=== PATIENT | male | born 2000 | race Caucasian/White ===

== ENCOUNTER 2023-05-16 13:46 | Emergency (ER) | payer SELFPAY ==
[2023-05-16 13:47] VITALS: BP 179/104; PULSE 78; RESP 16; TEMP 36.7; O2SAT 99; BMI 35.9
--- NOTE | 2023-05-16 13:49 | XR_ITS ---
WS: [id number] Left hand, 3 views, 05/16/2023 Clinical Data: injury Comparison: None. Findings: No fractures or dislocations are seen. The soft tissues are unremarkable. The joint spaces are normal Impression: Negative left hand.
--- NOTE | 2023-05-16 14:27 | W.ED.UPPEXIN ---
HPI - Extremity Injury (Upper) General: Chief Complaint: Extremity Injury, Upper Stated Complaint: Dropped truck on left hand Time Seen by Provider: 05/16/23 14:05 Source: patient Mode of arrival: ambulatory Limitations: no limitations History of Present Illness: Patient is a 22-year-old male who presents to the ED today for evaluation of a left hand injury that he sustained just prior to arrival after he was working on a semitruck when the lisa somehow came down suddenly and his hand got caught underneath the tire for a few minutes. No breaks in the skin. complaint: injury to: left and hand Onset (ago): hour(s) Other injuries: none Place: work Severity: moderate Relieving factors: immobilization Exacerbating factors: movement of extremity Context: direct blow and crush Associated symptoms: Reports no associated symptoms; Denies weakness in extremities Review of Systems Musc: Reports: extremity pain (L hand) and extremity swelling (L hand) Neuro: Denies: numbness in extremities, weakness in extremities or sensory changes Physical Exam Const: COMMON NORMALS: no acute distress, patient oriented x3, no limitations, healthy appearing, alert and well nourished Extremity: COMMON NORMALS: full ROM and capillary refill normal GENERAL: Yes normal exam except as noted LEFT UPPER EXTREMITY: Yes hand & digits (mild edema/tenderness to L 2-3 MCP/distal metacarpals-both volar and dorsal) Left hand and digits: Yes ROM (normal), Yes neurovascular exam (normal) and Yes other (no breaks in skin; fingers with normal ROM and sensation and cap refill) Neuro: COMMON NORMALS: patient oriented x3, moves all extremities, no focal motor deficits and no sensory deficits noted SENSORIUM/ORIENTATION: Yes alert Course Vital Signs: Vital signs: Vital Signs Temperature 98.1 F 05/16/23 13:47 Pulse Rate 78 05/16/23 13:47 Respiratory Rate 16 05/16/23 13:47 Blood Pressure 179/104 05/16/23 13:47 Pulse Oximetry 99 05/16/23 13:47 Oxygen Delivery Me thod Room Air 05/16/23 13:47 MDM - Extremity Injury (Upper) Medical Decision Making XR negative. Recommend ice and elevation. Return to ED precautions given. All radiology interpretation(s) finalized by discharge Discharge Plan Discharge Patient Disposition: Home Clinical Impression: Contusion of left hand Condition: Stable Discharge Orders: Discharge ED (Routine); Ordered 05/16/23 Ordered By: Bianca Gutiérrez Patient Instructions: Contusion, RICE Therapy Stand Alone Forms: Work/School Release Coding Level of Care Code ED Social Work Job Titles for Ulises Stephens
== END 2023-05-16 14:56 | disposition home or self-care (01) ==
PROVIDERS: Emergency Provider Physician Assistant
DX: S60.222A Contusion of left hand, initial encounter (principal); W20.8XXA Other cause of strike by thrown, projected or falling object, initial encounter
CPT/HCPCS: 73130; 99283